=== PATIENT | female | born 1985 | race Caucasian/White ===

== ENCOUNTER 2017-06-06 03:32 | Inpatient (IN) | payer MEDICAID ==
--- NOTE | 2017-06-06 06:46 | Ultrasound Report ---
FINAL REPORT EXAM: US OB LIMITED HISTORY: term /pain TECHNIQUE: A limited OB sonogram was obtained for evaluation of amniotic fluid index. FINDINGS: The FLORESITA is 10.9 cm which is within normal range. The heart rate is 135 BPM. The estimated gestational age is 39 weeks 1 day. IMPRESSION: FLORESITA is 10.9 cm which is within normal range. heart is 135 BPM.
--- NOTE | 2017-06-06 06:47 | Ultrasound Report ---
FINAL REPORT EXAM: US OB BPP WO NON-STRESS HISTORY: term /pain TECHNIQUE: A limited OB sonogram was obtained for evaluation of the biophysical profile. FINDINGS: For breathing movements, a score of 2 out of 2 was obtained. For movements, a score of 2 out of 2 was obtained. For posture and tone, a score of 2 out of 2 was obtained. For qualitative amniotic fluid volume, a score of 2 out of 2 was obtained. IMPRESSION: Biophysical profile score of 8 out of 8. The heart rate is 135 BPM.
[2017-06-06] MEDS ORDERED: SUBLIMAZE IV PRN ×2 (07:26→08:00)
--- NOTE | 2017-06-06 07:35 | History and Physical Report ---
History of Present Illness Date of examination: 06/06/17 Date of admission: 06/06/17 06:21 Chief complaint: SROM History of present illness: Pt is a 31yo EDC 06/11/17; EGA 39 2/7 weeks presents to L&D complaining of SROM @ 0600 followed by RUC's q 3-4 mins. She received care at [facility] since 13 weeks and course significant for a previous C Section - she desires a TOLAC. records are available and GBS is Negative. Past History Past Medical History: no pertinent history Past Surgical History: section Family/Genetic History: none Social history: no significant social history, - Obstetrical History Expected Date of Delivery: 06/12/17 Actual Gestation: 39 Week(s) 1 Day(s) : 3 Medications and Allergies Allergies Allergy/AdvReac Type Severity Reaction Status Date / Time No Known Allergies Allergy Verified 04/26/14 08:03 Home Medications Medication Instructions Recorded Confirmed Last Taken Type Pnv,Calcium 72/Iron/Folic Acid 1 each PO DAILY 04/27/14 04/27/14 04/26/14 History [Pnv Plus Multivit Tab] Ferrous Sulfate [Feosol 325 MG tab] 325 mg PO BID #60 tablet 04/30/14 Unknown Rx Ibuprofen [Motrin 800 MG tab] 800 mg PO Q6H PRN #30 tablet 04/30/14 Unknown Rx oxyCODONE /ACETAMINOPHEN [Percocet 1 tab PO Q6HR PRN #30 tablet 04/30/14 Unknown Rx 5/325] Review of Systems All systems: negative - Vital Signs Vital signs: Vital Signs Temp Pulse Resp BP 98.5 F 91 H 18 146/71 06/06/17 03:42 06/06/17 03:42 06/06/17 03:42 06/06/17 03:42 Temp Pulse Resp BP Pulse Ox 98.5 F 84 18 123/64 100 06/06/17 03:42 06/06/17 06:55 06/06/17 03:42 06/06/17 04:49 06/06/17 06:55 - Physical Exam Breasts: Positive: deferred Cardiovascular: Regular rate Lungs: Positive: Clear to auscultation Abdomen: Positive: normal appearance Genitourinary (Female): Positive: normal external genitalia Vagina: Positive: normal moisture Uterus: Positive: enlarged Extremities: Positive: normal - Obstetrical FHR: category 1 Uterine Contraction Monitor Mode: External Cervical Dilatation: 1 Cervical Effacement Percentage: 50 station: -3 Uterine Contraction Pattern: Irregular Uterine Tone Measurement Phase: Contraction Uterine Contraction Intensity: Mild Results Result Diagrams: 06/06/17 07:15 All other labs normal. Assessment and Plan - Patient Problems (1) 39 weeks gestation of Onset Date: 06/06/17 Current Visit: Yes Status: Acute Plan to address problem: A: IUP @ 39 1/7 weeks in labor Previous C Section - desires TOLAC P: Admit to L&D for TOLAC (2) Previous delivery affecting Onset Date: 06/06/17 Current Visit: Yes Status: Acute
[2017-06-06 07:41] LABS: Mean Corpuscular HGB Conc 34 % (30-34); Mean Corpuscular Hemoglobin 29 pg (28-32); Mean Corpuscular Volume 85 fl (79-97); Platelet Count 177 K/mm3 (140-440); Red Blood Count 4.49 M/mm3 (3.65-5.03); Red Cell Distribution Width 14.9 % (13.2-15.2)
[2017-06-06] MEDS: LACTATED RINGERS 1,000 ML IV SCH ×2 (07:53→08:35)
[2017-06-06] MEDS ORDERED: STADOL IV PRN (08:00)
[2017-06-06] MEDS ORDERED: MINERAL OIL PO PRN (08:00)
[2017-06-06] MEDS ORDERED: XYLOCAINE 2% INFILTRATI ONE (08:00)
[2017-06-06] MEDS ORDERED: BRETHINE IVP PRN (08:00)
[2017-06-06] MEDS ORDERED: POLYCILLIN/NS 2 GM/100 ML 2 GM/100 ML BAG IV ONE (08:00)
[2017-06-06] MEDS ORDERED: NARCAN 0.4 MG/1 ML IV PRN (08:00)
[2017-06-06] MEDS ORDERED: PHENERGAN PO PRN ×2 (08:00→12:37)
[2017-06-06] MEDS ORDERED: ZOFRAN IV PRN ×2 (08:00→12:37)
[2017-06-06] MEDS ORDERED: BRETHINE SUB-Q PRN (08:00)
[2017-06-06] MEDS ORDERED: ePHEDrine SULFATE IV PRN ×2 (08:00→09:00)
[2017-06-06] MEDS ORDERED: PITOCin/NS 20 UNIT/1000ML DRIP 20 UNITS/1,000 ML BAG IV SCH ×2 (08:00→13:00)
[2017-06-06] MEDS ORDERED: PITOCin/NS 30 UNIT/500ML 30 UNITS/500 ML BAG IV SCH (08:00)
[2017-06-06] MEDS ORDERED: LACTATED RINGERS 1,000 ML IV SCH (09:00)
--- NOTE | 2017-06-06 09:04 | Anesthesia Consultation ---
Anesthesia Consult and Med Hx Date of service: 06/06/17 - Airway Anesthetic Teeth Evaluation: Good ROM Head & Neck: Adequate Mental/Hyoid Distance: Adequate Mallampati Class: Class II Intubation Access Assessment: Probably Good - Pre-Operative Health Status ASA Pre-Surgery Classification: ASA2 Proposed Anesthetic Plan: Epidural, Spinal - Pulmonary Hx Asthma: No COPD: No Hx Pneumonia: No - Cardiovascular System Hx Hypertension: No - Central Nervous System Hx Seizures: No Hx Psychiatric Problems: No - Endocrine Hx Renal Disease: No Hx End Stage Renal Disease: No Hx Hypothyroidism: No Hx Hyperthyroidism: No - Hematic Hx Anemia: No Hx Sickle Cell Disease: No - Other Systems Hx Alcohol Use: No
[2017-06-06] MEDS ORDERED: fentaNYL-BUPIV 2 MCG/ML-0.125% 200 MCG/100 ML BAG EPIDURAL SCH (10:00)
[2017-06-06] MEDS ORDERED: NARCAN 2 MG/2 ML IV PRN (10:00)
[2017-06-06] MEDS ORDERED: AMPICILLIN/NS 1 GM/50 ML 1 GM/50 ML BAG IV SCH (12:30)
--- NOTE | 2017-06-06 12:35 | Procedure Note ---
OB Delivery Note - Delivery Date of Delivery: 06/06/17 Surgeon: RONN HOLGUIN Estimated blood loss: 300cc - Vaginal Delivery presentation: vertex Delivery position: OA Intrapartum events: PROM->1hr before delivery, meconium Delivery induction: none Delivery augmentation: pitocin Delivery monitor: external FHT, external uterine Route of delivery: vacuum extraction Indicators for instrumentation: maternal exhaustion Delivery placenta: spontaneous Delivery cord: 3 umbilical vessels Episiotomy: midline Delivery laceration: 3rd degree Delivery repair: vicryl Anesthesia: epidural Delivery comments: Infant delivered with the aid of a vacuum - 3 pulls, no pop-offs, and placed on Mom's chest for [id number] bonding and delayed cord clamping. Peds/RT in attendance. - A at 1 minute: 8 at 5 minutes: 9 Infant Gender: Female (3069gms)
[2017-06-06] MEDS ORDERED: PHENERGAN PR PRN (12:37)
[2017-06-06] MEDS ORDERED: DULCOLAX PR PRN (12:37)
[2017-06-06] MEDS ORDERED: TYLENOL PO PRN (12:37)
[2017-06-06] MEDS ORDERED: BENADRYL PO PRN (12:37)
[2017-06-06] MEDS ORDERED: MILK OF MAGNESIA PO PRN (12:37)
[2017-06-06] MEDS ORDERED: TUCKS PAD TP PRN (12:37)
[2017-06-06] MEDS ORDERED: LANSINOH TP PRN (12:37)
[2017-06-06] MEDS ORDERED: SODIUM CHLORIDE FLUSH SYRINGE 10 ML IV NR (13:00)
[2017-06-06] MEDS: MOTRIN PO SCH (15:22)
[2017-06-06] MEDS: NORCO 5/325 PO PRN (15:31)
[2017-06-06] MEDS: SENOKOT S PO SCH (15:31)
[2017-06-07] MEDS: MOTRIN PO SCH ×4 (00:01→18:33)
[2017-06-07] MEDS: FEOSOL PO SCH ×3 (00:01→22:09)
[2017-06-07] MEDS: NORCO 5/325 PO PRN (00:03)
[2017-06-07] MEDS: COLACE PO SCH ×3 (00:06→22:09)
[2017-06-07 00:57] LABS: Hematocrit 33.8 % (30.3-42.9); Hemoglobin 11.8 gm/dl (10.1-14.3)
--- NOTE | 2017-06-07 09:32 | Progress Note ---
Assessment and Plan - Patient Problems (1) 39 weeks gestation of Onset Date: 06/06/17 Current Visit: Yes Status: Resolved (2) Previous delivery affecting Onset Date: 06/06/17 Current Visit: Yes Status: Resolved (3) (vaginal after ) Onset Date: 06/07/17 Current Visit: Yes Status: Resolved Plan to address problem: A: S/P () - PPD #1 Doing well P: May go home tomorrow. Subjective - Subjective Date of service: 06/07/17 Principal diagnosis: s/p - PPD #1 Interval history: Pt is feeling well without complaints. Bleeding improved. Patient reports: appetite normal, voiding normally, pain well controlled, flatus , ambulating normally : doing well, nursing well, bottle feeding Objective - Vital Signs Latest vital signs: Vital Signs Temp Pulse Resp BP BP 06/07/17 06:24 18 06/07/17 01:03 18 06/07/17 01:01 18 06/07/17 00:03 18 06/07/17 00:01 18 06/07/17 00:00 98.2 F 98 H 20 103/58 06/06/17 14:05 85 114/61 06/06/17 13:50 82 119/69 06/06/17 13:35 83 120/64 06/06/17 13:20 86 119/68 06/06/17 13:06 100 H 119/67 06/06/17 12:50 82 120/75 06/06/17 12:35 88 117/60 06/06/17 12:20 84 113/60 06/06/17 12:05 89 126/58 06/06/17 11:51 101 H 141/79 06/06/17 11:36 97 H 122/57 06/06/17 11:20 93 H 124/63 06/06/17 11:05 90 132/65 06/06/17 10:50 82 135/64 06/06/17 10:35 94 H 125/61 06/06/17 10:20 101 H 145/82 06/06/17 10:17 98 H 130/58 06/06/17 10:16 86 130/62 06/06/17 10:12 85 130/64 06/06/17 10:10 86 132/63 06/06/17 10:08 83 135/64 06/06/17 10:06 83 129/62 06/06/17 10:04 79 124/58 06/06/17 10:02 81 128/60 06/06/17 10:00 88 131/62 06/06/17 09:58 84 137/65 06/06/17 09:56 83 131/62 06/06/17 09:54 84 132/58 06/06/17 09:52 80 136/64 06/06/17 09:50 86 150/76 06/06/17 09:48 78 138/66 06/06/17 09:44 85 138/64 06/06/17 09:42 83 141/62 06/06/17 09:40 80 142/64 06/06/17 09:38 83 146/66 06/06/17 09:36 86 130/68 Intake and Output 06/06/17 06/07/17 06/07/17 22:59 06:59 14:59 Intake Total 640 Output Total 200 Balance 440 Intake: Oral 640 Output: Urine 200 Void 200 Other: Total, Intake Amount 240 Total, Output Amount 200 # Voids Void 1 - Exam Breasts: Present: deferred Cardiovascular: Present: Regular rate Lungs: Present: Clear to auscultation Abdomen: Present: normal appearance, soft Uterus: Present: normal, firm, fundal height below umbilicus Extremities: Present: normal - Labs Labs: Laboratory Tests 06/06/17 06/06/17 06/06/17 07:15 07:15 07:15 WBC 13.4 H RBC 4.49 Hgb 13.0 Hct 38.0 MCV 85 MCH 29 MCHC 34 RDW 14.9 Plt Count 177 RPR Nonreactive Blood Type O POSITIVE Antibody Screen Negative 06/07/17 00:42 WBC RBC Hgb 11.8 Hct 33.8 MCV MCH MCHC RDW Plt Count RPR Blood Type Antibody Screen
[2017-06-07] MEDS: PRENATAL VITAMIN PO SCH (10:15)
[2017-06-07] MEDS ORDERED: BOOSTRIX IM ONE (12:37)
[2017-06-07] MEDS ORDERED: M-M-R II VACCINE SUB-Q ONE (12:37)
--- NOTE | 2017-06-07 14:26 | Discharge Summary ---
Providers - Providers Date of Admission: 06/06/17 06:21 Date of discharge: 06/08/17 Attending physician: RONN HOLGUIN Primary care physician: RONN HOLGUIN Hospitalization Reason for admission: active labor, IUP at term Delivery: Episiotomy: midline Laceration: 3rd degree Other procedures: none complications: none Discharge diagnosis: IUP at term delivered, baby: female Hospital course: Unremarkable. Condition at discharge: Good Disposition: DC-01 TO HOME OR SELFCARE - Discharge Diagnoses (1) 39 weeks gestation of Status: Resolved (2) Previous delivery affecting Status: Resolved (3) (vaginal after ) Status: Resolved Plan - Discharge Medications Prescriptions: Docusate Sodium [Colace CAP] 100 mg PO BID #60 capsule HYDROcodone/APAP 5-325 [Fenton 5-325 mg TAB] 1 each PO Q6H PRN #10 tablet PRN Reason: Pain, Moderate (4-6) Ibuprofen [Motrin 600 MG tab] 600 mg PO Q6H #30 tablet Vit-Fe Fumar-FA [ Vitamin] 1 each PO QDAY #30 tablet - Provider Discharge Summary Activity: routine, no sex for 6 weeks, no heavy lifting 4 weeks, no strenuous exercise Diet: routine Instructions: routine Additional instructions: [] Smoking cessation referral if applicable(refer to patient education folder for contact #) [] Refer to [facility] Booklet Call your doctor immediately for: * Fever > 100.5 * Heavy vaginal bleeding ( >1 pad per hour) * Severe persistent headache * Shortness of breath * Reddened, hot, painful area to leg or breast * Drainage or odor from incision. * Keep incision clean and dry at all times and follow doctor's instructions regarding bathing/showering - Follow up plan Follow up: RONN HOLGUIN MD [Primary Care Provider] - 6 Weeks
[2017-06-07] MEDS: SENOKOT S PO SCH (14:46)
[2017-06-08] MEDS: MOTRIN PO SCH (08:55)
[2017-06-08 09:29] VITALS: BP 116/47
[2017-06-08] MEDS: COLACE PO SCH (10:53)
[2017-06-08] MEDS: FEOSOL PO SCH (10:54)
[2017-06-08] MEDS: PRENATAL VITAMIN PO SCH (10:54)
== END 2017-06-08 12:30 | disposition home or self-care (01) | DRG 775 ==
LOC: TRG 03:32 → LD 06:21 → OB 14:43
PROVIDERS: ADMIT Obstetrics & Gynecology; ATTEND Obstetrics & Gynecology
PROC: 10D07Z6 Extraction of Products of Conception, Vacuum, Via Natural or Artificial Opening (ICD-10-PCS; principal; 2017-06-06)
PROC: 0W8NXZZ Division of Female Perineum, External Approach (ICD-10-PCS; 2017-06-06)
PROC: 3E0R3BZ Introduction of Anesthetic Agent into Spinal Canal, Percutaneous Approach (ICD-10-PCS; 2017-06-06)
PROC: 00HU33Z Insertion of Infusion Device into Spinal Canal, Percutaneous Approach (ICD-10-PCS; 2017-06-06)
PROC: 3E0234Z Introduction of Serum, Toxoid and Vaccine into Muscle, Percutaneous Approach (ICD-10-PCS; 2017-06-07)
DX: O34.219 Maternal care for unspecified type scar from previous cesarean delivery (principal); O70.20 Third degree perineal laceration during delivery, unspecified; Z37.0 Single live birth; O42.02 Full-term premature rupture of membranes, onset of labor within 24 hours of rupture; O77.0 Labor and delivery complicated by meconium in amniotic fluid; Z3A.39 39 weeks gestation of pregnancy; Z23 Encounter for immunization; O75.81 Maternal exhaustion complicating labor and delivery
CPT/HCPCS: 36415; 76815; 76819; 85014; 85018; 85027; 86592; 86850; 86900; 86901; 99211; A6250; G0463; J0290; J0595; J2590; J7120

== ENCOUNTER 2020-11-09 10:17 | Outpatient (CLI) | payer OTHER ==
--- NOTE | 2020-11-09 13:24 | Mammography Report ---
BILATERAL DIGITAL SCREENING MAMMOGRAM WITH CAD WITH TOMOSYNTHESIS HISTORY: Screening mammogram, BRCA1 positive. TECHNIQUE: Routine digital mammographic imaging performed. This examination was interpreted with xiomara hinton benefit of Computer-aided Detection analysis. Tomosynthesis images were acquired and reviewed. COMPARISON: None available. This is a baseline exam. FINDINGS: Breast Density: heterogeneously dense breast parenchymal pattern which somewhat lessens the sensitivi ty of the evaluation. Digital CC and MLO views demonstrate enlarged low-lying left axillary lymph node. No suspicious find ings within the right breast. IMPRESSION: Enlarged low-lying left axillary lymph node for which a targeted ultrasound is recommended. BIRADS 0-Incomplete: Needs additional imaging evaluation NOTE: WE WILL RECALL THE PATIENT FOR THIS ADDITIONAL EVALUATION. FURTHER INFORMATION: According to the [employer], yearly mammograms are recommend ed starting at age 40 and continuing as long as a woman is in good health. Clinical Breast Exams shou ld be part of a periodic health exam-about every 3 years for women in their 20s and 30s and every yea r for women 40 and over. Breast self exam is an option for women starting in their 20s. Any breast ch malcom noted on a breast self exam should be reported promptly to the patient's healthcare provider. Br east MRI is recommended for women with an approximately 20-25% or greater lifetime risk of breast can cer, including women with a strong family history of breast or ovarian cancer and women who have been treated for Hodgkin's disease. A negative Mammography report should not discourage follow up or biopsy of a clinically significant f inding and/or abnormality. Dense breast tissue may obscure small neoplasms. The patient will be entered into a reminder system with a target due date for the next screening mamm ogram. Signer Name: Son Rizo MD Signed: 11/09/2020 1:20 PM Workstation Name: [id number]
--- NOTE | 2020-11-09 13:25 | Magnetic Resonance Report ---
Bilateral breast MR without and with contrast. History: Patient at high risk for breast malignancy, BRCA1 positive. Comparison: Mammogram performed the same day. Technique: Multiplanar multisequence MR images of the breast were obtained before and after the intra venous administration of 15 ml of Clariscan contrast agent. Post processing analysis and review was p erformed on a separate computer workstation. Findings: Breast composition is heterogeneously dense. There is marked background parenchymal enhancement which decreases the sensitivity of MRI. The diffuse parenchymal enhancement within both breasts is fairly symmetric and is most pronounced pe ripherally. This is typically seen with benign breast parenchymal enhancement. Within the above limit ations, there is no discrete mass, dominant focus, or other evidence to suggest the presence of breas t malignancy. A low-lying left axillary tail lymph node appears enlarged measuring up to 11 x 7 mm. No abnormal rig ht axillary lymph nodes. No abnormal internal mammary lymph nodes. Impression: Mildly enlarged low-lying left axillary tail lymph node. Recommend a dedicated targeted ultrasound wi th possible subsequent biopsy if the lymph node appears enlarged sonographically. BIRADS 0: Incomplete--Needs Additional Imaging Evaluation. A normal MRI does not exclude the presence of some forms of breast malignancy as literature reports s uggest that some forms of ductal carcinoma in situ or lobular carcinoma, particularly, may not be det ected on MRI. The sensitivity and specificity of MRI for cancers under 5 mm may be reduced. MRI does not replace the recommendation for annual conventional mammographic evaluation and should be used as an adjunct to mammography and physical examination as necessary. Signer Name: Son Rizo MD Signed: 11/09/2020 1:20 PM Workstation Name: [id number]
== END 2020-11-09 10:18 | disposition home or self-care (01) ==
LOC: SPVIMAG 10:17
PROVIDERS: ATTEND Surgery
DX: Z51.89 Encounter for other specified aftercare (principal); Z15.01 Genetic susceptibility to malignant neoplasm of breast; Z15.89 Genetic susceptibility to other disease; R59.0 Localized enlarged lymph nodes; Z80.41 Family history of malignant neoplasm of ovary
CPT/HCPCS: 77066; A9575; C8908; G0279; 77049

== ENCOUNTER 2021-01-04 09:26 | Outpatient (CLI) | payer OTHER ==
--- NOTE | 2021-01-04 12:25 | Ultrasound Report ---
LEFT BREAST ULTRASOUND INDICATION: Enlarged low lying left axillary lymph nodes noted on prior imaging. COMPARISON: 11/09/2020 MRI and mammogram. FINDINGS: Targeted ultrasound of the left axilla and left axillary tail was performed to evaluate the site of an enlarged lymph node which was seen on prior imaging. No evidence of enlarged lymph nodes or cortical thickening is identified currently. There is a lymph node in the left axillary tail which appears to correspond with the finding seen on prior imaging, but this shows cortical thickness with in normal limits. No evidence of malignancy. IMPRESSION: No evidence of malignancy. No current abnormal left axillary/axillary tail lymph nodes are identified . A routine screening mammogram which will be due in November 2021 is recommended, unless imaging is cl inically indicated sooner. BI-RADS Category 2: Benign. Recommend routine screening mammography in one year Signer Name: Son Rizo MD Signed: 01/04/2021 12:20 PM Workstation Name: [id number]
== END 2021-01-04 09:27 | disposition home or self-care (01) ==
LOC: SPVWC 09:26
PROVIDERS: ATTEND Surgery
DX: R92.8 Other abnormal and inconclusive findings on diagnostic imaging of breast (principal)